=== PATIENT | male | born 1965 | race American Indian/Alaskan Native ===

== ENCOUNTER 2019-02-28 18:09 | Emergency (ER) | payer SELFPAY ==
[2019-02-28 18:15] VITALS: BP 155/76
--- NOTE | 2019-02-28 18:16 | Emergency Department Report ---
Blank Doc - Documentation Documentation: 54 y o male present to Ed cc of lower back pain radiating to legs and upper back x about last week, Pt states pain worse today sitiing aggrvates the [facility] eval
[2019-02-28] MEDS ORDERED: TORADOL IM ONE (18:40)
[2019-02-28] MEDS ORDERED: DECADRON IM ONE (18:40)
[2019-02-28 18:51] LABS: Bilirubin,Urine NEG (Negative); Blood,Urine NEG (Negative); Color,Urine Straw (Yellow); Protein,Urine <15 mg/dL mg/dL (Negative); Urobilinogen,Urine < 2.0 mg/dL (<2.0); WBC,Urine < 1.0 /HPF (0.0-6.0)
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
== END 2019-02-28 20:17 | disposition home or self-care (01) ==
LOC: ED 18:09
DX: M54.42 Lumbago with sciatica, left side (principal); G89.29 Other chronic pain
CPT/HCPCS: 81001; 96372; 99283; J1100; J1885